=== PATIENT | male | born 1955 | race Caucasian/White ===

== ENCOUNTER 2021-09-10 20:26 | Emergency (ER) | payer BC ==
[~2021-09-10] VITALS: Ht 172.7 cm; Wt 101.6 kg
[2021-09-10] MEDS ORDERED: PROTONIX40 M1 (21:37)
[2021-09-10] MEDS ORDERED: TAMS0.4C (21:37)
[2021-09-10] MEDS ORDERED: PLAVIX75 MG (21:37)
[2021-09-10] MEDS ORDERED: LIPITOR80 MG (21:38)
== END 2021-09-10 22:10 | disposition home or self-care (01) ==
LOC: ER 20:26
DX: B37.0 Candidal stomatitis (principal); B37.81 Candidal esophagitis